=== PATIENT | female | born 1990 | race Two or more races ===

== ENCOUNTER 2020-05-26 15:01 | Outpatient (CLI) | payer OTHER | END 2020-05-26 15:44 | disposition home or self-care (01) | LOC: OFIC 805 15:01 | PROVIDERS: ATTEND Otolaryngology Otology & Neurotology | DX: R04.0 Epistaxis (principal) ==

== ENCOUNTER 2020-06-03 15:19 | Outpatient (CLI) | payer OTHER | END 2020-06-03 15:59 | disposition home or self-care (01) | LOC: OFIC 805 15:19 | PROVIDERS: ATTEND Otolaryngology Otology & Neurotology | DX: R04.0 Epistaxis (principal) ==

== ENCOUNTER 2020-07-15 13:45 | Inpatient (IN) | payer OTHER ==
[~2020-07-15] VITALS: Ht 170.2 cm; Wt 84.8 kg
[2020-07-23] MEDS ORDERED: PRENATAL TABLE1 EAC1 PO (09:31)
== END 2020-07-26 15:22 | disposition home or self-care (01) | DRG 788 ==
LOC: LDR 07-23 07:23 → SURH 07-23 13:45 → OB/GYN 07-23 19:23
PROVIDERS: ADMIT Obstetrics & Gynecology; ATTEND Obstetrics & Gynecology
PROC: 3E033VJ Introduction of Other Hormone into Peripheral Vein, Percutaneous Approach (ICD-10-PCS; 2020-07-23)
PROC: 4A1HXFZ Monitoring of Products of Conception, Cardiac Rhythm, External Approach (ICD-10-PCS; 2020-07-23)
PROC: 10D00Z1 Extraction of Products of Conception, Low, Open Approach (ICD-10-PCS; principal; 2020-07-23 15:00)
DX: O61.0 Failed medical induction of labor (principal); O62.1 Secondary uterine inertia; O99.824 Streptococcus B carrier state complicating childbirth; Z3A.40 40 weeks gestation of pregnancy; Z37.0 Single live birth

== ENCOUNTER 2020-07-18 14:50 | Outpatient (CLI) | payer OTHER | END 2020-07-18 18:33 | disposition home or self-care (01) | LOC: NST 14:50 | PROVIDERS: ATTEND Obstetrics & Gynecology | DX: Z34.83 Encounter for supervision of other normal pregnancy, third trimester (principal) ==